=== PATIENT | male | born 1990 | race Caucasian/White ===

== ENCOUNTER 2020-07-30 09:13 | Outpatient (REF) | payer OTHER, SELFPAY | END 2020-07-30 09:14 | disposition home or self-care (01) | LOC: HO.LAB 09:13 | PROVIDERS: Visit Provider Internal Medicine | DX: Z20.828 Contact with and (suspected) exposure to other viral communicable diseases (principal) | CPT/HCPCS: 87635 ==

== ENCOUNTER 2021-12-01 19:08 | Emergency (ER) | payer OTHER, SELFPAY ==
[2021-12-01 19:50] VITALS: BP 125/74; PULSE 74; RESP 18; TEMP 36.9; O2SAT 99; BMI 32.3
--- NOTE | 2021-12-01 20:06 | ED_ITS ---
HPI - Extremity Problem General Chief complaint: Extremity Injury, Upper Stated complaint: thumb lac Time Seen by Provider: 12/01/21 20:06 Source: patient Mode of arrival: ambulatory Limitations: no limitations History of Present Illness HPI Narrative: Patient is a 31 year old male presenting to the emergency department today with a right index finger laceration. 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 Patient denies any other injuries from the incident. Patient denies any loss of consciousness with the incident. Patient denies any dizziness, lightheadedness, abdominal pain, nausea, vomiting, fever, chills, blurry vision, double vision, loss of vision, chest pain, difficulty breathing, shortness of breath, back pain, night sweats, pain with u rination, increased urinary frequency, increased urinary urgency, blood in his urine or stool, syncope or a near syncopal episode, bowel incontinence, bladder incontinence, bowel retention, bladder retention, or any other complaints at this time. Related Data Previous Rx's Medication Instructions Recorded cephalexin 500 mg capsule 1,000 mg PO Q6H 7 Days #56 cap 12/01/21 cephalexin 500 mg tablet 500 mg PO QID 7 Days #28 tab 12/01/21 Allergies Allergy/AdvReac Type Severity Reaction Status Date / Time No Known Allergies Allergy Verified 12/01/21 19:49 Review of Systems Constitutional: Constitutional: Reports no additional constitutional complaints, Denies chills, Denies fever(s) and Denies night sweats Eyes: Eyes: Reports no additional eye complaints, Denies blurry vision, Denies change in vision, Denies diplopia, Denies eye discharge, Denies loss of vision and Denies eye pain ENT: Denies dizziness Cardiovascular: Cardiovascular: Reports no additional cardiovascular complaints, Denies chest pain, Denies lightheadedness, Denies Loss of Conscio usness and Denies dyspnea Respiratory: Respiratory: Reports no additional respiratory complaints and Denies dyspnea Gastrointestinal: Gastrointestinal: Reports no additional gastrointestinal complaints, Denies abdominal pain, Denies melena, Denies hematochezia, Denies change in bowel habits and Denies change in stool character Genitourinary: Genitourinary: Reports no additional male genitourinary complaints, Denies hematuria, Denies oliguria, Denies difficulty urinating, Denies dysuria, Denies urinary frequency, Denies urinary hesitancy, Denies urinary incontinence and Denies urinary urgency Musculoskeletal: Musculoskeletal: Reports no additional musculoskeletal complaints, Denies numbness and Denies tingling Integumentary/Breasts: Comments: laceration to the right index finger Neurologic: Denies dizziness, Denies loss of vision, Denies numbness and Denies tingling Psychiatric: Psychiatric: Reports no additional psychiatric complaints Endocrine: Endocrine: Reports no additional endocrine complaints Hematologic/Lymphatic: Hematologic/Lymphatic: Reports no additional hematologic/lymphatic complaints Allergic/Immunologic: Allergic/Immunologic: Reports no additional allergic/immunologic complaints [facility] Past Medical History Attestation statement: The following information was validated with the patient. Source: old records reviewed Social History Social History Advance Directives: No Advance Directives Information Provided: No Physical Exam Vital Signs: Vital Signs: Last Vital Signs Temp 98.4 F 12/01/21 19:50 Pulse 74 12/01/21 19:50 Resp 18 12/01/21 19:50 BP 125/74 12/01/21 19:50 Pulse Ox 99 12/01/21 19:50 BMI result Body Mass Index 32.3 Const: General: cooperative, no acute distress, alert and awake Nutritional Appearance: well nourished Orientation/consciousness: patient oriented x3 Limitations: no limitations HENMT: Head: Yes normal to inspection and Yes atraumatic Ears: hearing grossly normal bilaterally and external ears normal General nose exam: Normal external nose present, no nasal discharge noted and no epistaxis Face and sinus: Yes normal facial exam, No abrasion and No laceration Mouth: Normal oral and palatal mucosa present, no drooling and no muffled voice Eyes: General: appearance normal, both eyes and all related structures Periorbital: periorbital findings normal Eyelids: Yes eyelids normal Conjunctivae: conjunctivae normal Pupils: Equal, round and reactive pupils present EOM: EOMs intact bilaterally Neck: Neck: Yes normal visual inspection, Yes full ROM and Yes no lymphadenopathy Chest: Chest palpation & inspection: normal inspection of the chest Resp: Effort & Inspection: normal respiratory effort and able to speak in complete sentences Auscultation: clear to auscultation bilaterally Cardio: Rate: regular rate Rhythm: regular rhythm GI: Inspection: Yes normal to inspection Skin: Other: 1cm laceration to the right index finger with no active bleeding Neuro: General: patient oriented x3 and moves all extremities Cranial nerves: Yes Equal, round and reactive pupils present Cognition (Neuro): normal cognition Motor exam (neuro): 5/5 motor strength present throughout Sensory Exam: Normal double simultaneous stimulation for sensation Coordination: [id number] test normal Extrem: General: Yes normal to inspection, Yes full ROM and Yes capillary refill normal Psych: Appearance: grossly normal Mental Status: mental status grossly normal Affect: normal affect Attitude: cooperative Thought process: Normal thought process present Thought content: Normal thought content present Insight: Good insight present (Psych) MDM - Extremity (Nontraumatic) MDM Narrative Medical decision making narrative: Patient is a 31 year old male presenting to the emergency department today with a right index finger laceration. Patient's physical exam showed a 1cm laceration to the right index finger with no active bleeding. Patient's ROM and PMS was intact to the right upper extremity. I explained my physical exam findings to the patient. I answered all questions asked by the patient. Patient's laceration was repaired, without incident, per procedure note. Patient's PMS and ROM was intact to the right upper extremity before and after the suture procedure. I stressed the importance of the patient taking his medication as prescribed. I stressed the importance of the patient following up with his primary care provider. I stressed the importance of the patient returning to the emergency department immediately if his symptoms were to worsen or if he were to develop any dizziness, shortness of breath, difficulty breathing, chest pain, blurry vision, loss of vision, nausea, vomiting, abdominal pain, fever, chills, back pain, or any other complaints. Patient verbalized agreement and understanding with this treatment plan and discharge. Differential Diagnosis Differential diagnosis: Likely cellulitis (laceration) Medical Records Attestation: I reviewed the patient's medical records. Procedures Laceration Laceration 1: Site: other (index finger) Side (If applicable): right Size (cm): 1 Description: linear Depth: simple, single layer Local Anesthetic: lidocaine 2% and with epi Amount of anesthesia used (mL): 3 Pre-repair: irrigated extensively Skin layer closed with: nylon Size (cm): 4-0 Number of sutures: 2 Technique: simple, interrupted Discharge Plan Discharge Clinical Impression: Finger laceration Patient Disposition: Home, Self-Care Instructions: Laceration (DC) Additional Instructions: Have your sutures removed in 10-14 days. Do NOT soak the sutured area. Take your antibiotic as written. Follow up with your primary care provider. Return to the emergency department immediately if your symptoms worsen or if you develop any dizziness, shortness of breath, difficulty breathing, chest pain, blurry vision, loss of vision, nausea, vomiting, abdominal pain, fever, chills, back pain, or any other complaints. Prescriptions: New cephalexin 500 mg capsule 1,000 mg PO Q6H 7 Days Qty: 56 0RF cephalexin 500 mg tablet 500 mg PO QID 7 Days Qty: 28 0RF Stand Alone Forms: Work/School Release Interventions: ED Discharge Assessment Last Done: 12/01/21 20:57 Print Language: Tanzanian
[2021-12-01] MEDS: Lidocaine HCl 2%/Epi 1:100,000 20 ML VIAL INFILTRATI (20:13)
== END 2021-12-01 20:59 | disposition home or self-care (01) ==
PROVIDERS: Emergency Provider Emergency Medicine; PCP Family Medicine
DX: S61.210A Laceration without foreign body of right index finger without damage to nail, initial encounter (principal); W26.0XXA Contact with knife, initial encounter; Y93.G1 Activity, food preparation and clean up; Y92.511 Restaurant or cafe as the place of occurrence of the external cause; Y99.0 Civilian activity done for income or pay
CPT/HCPCS: 12001; 99283; 99284

== ENCOUNTER 2023-02-09 11:27 | Emergency (ER) | payer MEDICAID, SELFPAY ==
--- NOTE | ~2023-02-09 | XR_ITS ---
EXAMINATION: XR CHEST CLINICAL INFORMATION: Chest pain. COMPARISON: None available. TECHNIQUE: Frontal view of the chest was obtained. FINDINGS: No significant abnormality is noted involving the heart, lungs, mediastinum, bony thorax or soft tissues. XR/XR chest 1V IMPRESSION: Unremarkable examination.
--- NOTE | 2023-02-09 11:33 | ECG_ITS ---
Test Reason : cp Blood Pressure : / mmHG Vent. Rate : 073 BPM Atrial Rate : 073 BPM P-R Int : 160 ms QRS Dur : 082 ms QT Int : 360 ms P-R-T Axes : 048 033 019 degrees QTc Int : 396 ms Sinus rhythm with marked sinus arrhythmia Otherwise normal ECG When compared with ECG of 18-JUN-2010 08:16, No significant change was found Referred By: Generic ED Physician Electronically Signed By:ROWENA ALFRED
[2023-02-09 12:10] VITALS: BP 127/79; PULSE 76; RESP 17; TEMP 36.2; O2SAT 100; BMI 32.8
--- NOTE | 2023-02-09 13:18 | ED.GENADULT ---
HPI - General Adult General Chief complaint: General Medical Stated complaint: chest pain Time Seen by Provider: 02/09/23 15:58 Source: patient, RN notes reviewed and old records reviewed Mode of arrival: ambulatory Limitations: no limitations History of Present Illness HPI narrative: 32-year-old male with past medical history significant for anxiety presents for evaluation of chest pain. He reports he woke up with the pain this morning. The pain is dull, left sided and radiates through to his back. The pain is constant but waxing and waning in intensity. Currently his pain is a 3/10. He reports a history of chest pain with his anxiety, but this felt different. He presents to the ER because his pain worsened while he was at work and he became lightheaded Denies any personal or family history of CAD Related Data Previous Rx's Medication Instructions Recorded cephalexin 500 mg capsule 1,000 mg PO Q6H 7 days #56 caps 12/01/21 cephalexin 500 mg tablet 500 mg PO QID 7 days #28 tabs 12/01/21 hydroxyzine pamoate 25 mg capsule 25 mg PO TID PRN anxiety #20 caps 02/09/23 Allergies Allergy/AdvReac Type Severity Reaction Status Date / Time No Known Allergies Allergy Verified 12/01/21 19:49 Review of Systems Constitutional: Constitutional: Reports as per HPI, Denies chills, Denies fatigue, Denies fever(s) and Denies headache(s) ENT: Denies headache(s) Cardiovascular: Cardiovascular: Reports chest pain, Reports chest pain at rest, Denies syncope, Denies palpitations and Denies dyspnea on exertion Respiratory: Respiratory: Denies cough and Denies dyspnea on exertion Gastrointestinal: Gastrointestinal: Denies abdominal pain, Denies constipation and Denies vomiting Genitourinary: Genitourinary: Denies difficulty urinating and Denies dysuria Musculoskeletal: Musculoskeletal: Reports back pain and Reports tingling Neurologic: Denies syncope, Denies headache(s), Denies focal weakness and Reports tingling Endocrine: Endocrine: Denies fatigue and Denies palpitations Physical Exam ED Vital Signs: Vital Signs - 24 hr 02/09/23 12:10 Temperature 97.2 F Pulse Rate 76 Respiratory Rate 17 Blood Pressure 127/79 Pulse Oximetry 100 Oxygen Delivery Method Room Air BMI result Body Mass Index 32.8 Const General: healthy appearing, comfortable, no acute distress, alert and awake Nutritional Appearance: well nourished Orientation/consciousness: patient oriented x3 HENMT Head: Yes normocephalic and Yes atraumatic Throat: Yes posterior oropharynx normal Eyes Eyelids: Yes eyelids normal Conjunctivae: conjunctivae normal Sclerae: sclerae normal Corneas: corneas normal Pupils: Equal, round and reactive pupils present EOM: EOMs intact bilaterally Neck Neck: Yes full ROM Chest Other: Minimally tender to palpation the left chest wall without crepitus Resp Effort & Inspection: normal respiratory effort, able to speak in complete sentences, no audible wheezes and not labored Auscultation: clear to auscultation bilaterally Cardio Rate: regular rate Rhythm: regular rhythm GI Inspection: No distended Palpation (GI): Soft to palpation, not firm, nontender, no guarding and not rigid Auscultation: normoactive bowel sounds Skin General skin exam: no rashes or lesions noted and elasticity normal Neuro General: patient oriented x3 Cranial nerves: Yes Equal, round and reactive pupils present and Yes Bilaterally intact EOM present Cognition (Neuro): normal cognition Extrem Other: Moving all extremities well without any obvious deformities Course Course Course Narrative: This is an RME: Additional HPI, ROS, PE not included below will be deferred to primary provider. 32 year old male presents w/ CP, & SOB. Sub sternal non radiating, worse w/ movement at times stabbing other times pressure PE benign Plan- labs, imaging, ekg Medical Decision Making Medical Decision Making [facility] Narrative: 32 year old male with no risk factors for ACS presents for evaluation of Chest pain. His heart score is 1. He is PERC negative. Vitals are stable. EKG is sinus rhythm without ischemic changes. Chest x-ray is clear. His pain is most likely related to anxiety. All results were discussed with him and he requested something for anxiety I can take at home. We will prescribe PRN hydroxyzine Differential Diagnosis Chest pain, ACS, chest wall pain, anxiety, PE Lab Data [facility] Lab Attestation statement: I reviewed the patient's lab results. 02/09/23 13:33 02/09/23 13:33 Labs: Lab Results 02/09/23 02/09/23 02/09/23 Range/Units 13:33 13:33 13:33 WBC 8.7 (4.8-10.8) X10*3/uL RBC 5.88 H (4.60-5.80) X10*6/uL Hgb 15.5 (14.0-18.0) g/dl Hct 46.8 (42.0-52.0) % MCV 79.6 L (80.0-98.0) fL MCH 26.4 L (27.0-33.0) pg MCHC 33.1 (31.0-36.0) g/dl RDW 13.8 (11.0-16.0) % Plt Count 208 (160-400) X10*3/uL MPV 9.5 (9.4-12.4) fL Immature Gran % (Auto) 0.2 (0.0-0.4) % Neut % (Auto) 68.6 (45-73) % Lymph % (Auto) 22.4 (20-40) % Wilkinson % (Auto) 7.5 (2-11) % Eos % (Auto) 0.8 (0-4) % Baso % (Auto) 0.5 (0-2) % Lymph # (Auto) 2.0 (1.2-4.9) X10*3/uL Wilkinson # (Auto) 0.7 (0.1-1.2) X10*3/uL Eos # (Auto) 0.1 (0.0-0.4) X10*3/uL Baso # (Auto) 0.0 (0.0-0.2) X10*3/uL Abs Immat Gran (auto) 0.02 (0.00-0.03) X10*3/uL Absolute Neuts (auto) 6.0 (2.0-8.3) x10*3/uL Absolute Nucleated RBC 0.000 (0.0-0.012) X10*3/uL Nucleated RBC % (auto) 0.0 (0.0-0.2) /100WBC Sodium 141 (135-145) mmol/L Potassium 4.6 (3.3-5.1) mmol/L Chloride 106 (96-108) mmol/L Carbon Dioxide 27 (22-29) mmol/L Anion Gap 13 (12-20) BUN 11 (9-16) mg/dL Creatinine 1.14 (0.5-1.4) mg/dL Estim Creat Clear Calc 111.1 Estimated GFR > 60 Random Glucose 88 (60-115) mg/dL Calcium 9.9 (8.4-10.2) mg/dL Magnesium 1.8 (1.6-2.6) mg/dL Total Bilirubin 1.1 H (0.0-1.0) mg/dL AST 18 (5-37) U/L ALT 20 (0-40) U/L Alkaline Phosphatase 72 (39-117) U/L Troponin I High Sens < 2.7 (<3.5-35.0) ng/L Total Protein 7.6 (6.5-8.0) g/dL Albumin 4.7 (3.5-5.0) g/dL COVID-19 (FIFI) (Negative) COVID-19 Clin Com 02/09/23 Range/Units 13:33 WBC (4.8-10.8) X10*3/uL RBC (4.60-5.80) X10*6/uL Hgb (14.0-18.0) g/dl Hct (42.0-52.0) % MCV (80.0-98.0) fL MCH (27.0-33.0) pg MCHC (31.0-36.0) g/dl RDW (11.0-16.0) % Plt Count (160-400) X10*3/uL MPV (9.4-12.4) fL Immature Gran % (Auto) (0.0-0.4) % Neut % (Auto) (45-73) % Lymph % (Auto) (20-40) % Wilkinson % (Auto) (2-11) % Eos % (Auto) (0-4) % Baso % (Auto) (0-2) % Lymph # (Auto) (1.2-4.9) X10*3/uL Wilkinson # (Auto) (0.1-1.2) X10*3/uL Eos # (Auto) (0.0-0.4) X10*3/uL Baso # (Auto) (0.0-0.2) X10*3/uL Abs Immat Gran (auto) (0.00-0.03) X10*3/uL Absolute Neuts (auto) (2.0-8.3) x10*3/uL Absolute Nucleated RBC (0.0-0.012) X10*3/uL Nucleated RBC % (auto) (0.0-0.2) /100WBC Sodium (135-145) mmol/L Potassium (3.3-5.1) mmol/L Chloride (96-108) mmol/L Carbon Dioxide (22-29) mmol/L Anion Gap (12-20) BUN (9-16) mg/dL Creatinine (0.5-1.4) mg/dL Estim Creat Clear Calc Estimated GFR Random Glucose (60-115) mg/dL Calcium (8.4-10.2) mg/dL Magnesium (1.6-2.6) mg/dL Total Bilirubin (0.0-1.0) mg/dL AST (5-37) U/L ALT (0-40) U/L Alkaline Phosphatase (39-117) U/L Troponin I High Sens (<3.5-35.0) ng/L Total Protein (6.5-8.0) g/dL Albumin (3.5-5.0) g/dL COVID-19 (FIFI) Negative (Negative) COVID-19 Clin Com See Note Independent Interpretation I performed an independent interpretation of an: EKG and Plain X-Ray Discharge Plan Discharge Clinical Impression: Chest pain Patient Disposition: Home, Self-Care Instructions: Chest Pain (ED) Additional Instructions: All of your test in the ER were reassuring. This includes your EKG, labs, and chest x-ray. Follow up with your primary doctor. Your pain is likely related to anxiety. You may take hydroxyzine as needed for anxiety. Prescriptions: New hydroxyzine pamoate 25 mg capsule 25 mg PO TID PRN (Reason: anxiety) Qty: 20 0RF No Action cephalexin 500 mg capsule 1,000 mg PO Q6H 7 Days Qty: 56 0RF cephalexin 500 mg tablet 500 mg PO QID 7 Days Qty: 28 0RF Stand Alone Forms: Work/School Release
[2023-02-09 13:39] LABS: MANUAL DIFF FLAG NO
[2023-02-09 13:41] LABS: Basophils Percent Auto 0.5 % (0-2); Eosinophils Absolute Auto 0.1 X10*3/uL (0.0-0.4); Eosinophils Percent Auto 0.8 % (0-4); Hematocrit 46.8 % (42.0-52.0); Hemoglobin 15.5 g/dl (14.0-18.0); Imm Gran Abs Auto 0.02 X10*3/uL (0.00-0.03); Imm Gran Pct Auto 0.2 % (0.0-0.4); Lymphocytes Percent Auto 22.4 % (20-40); Mean Corpuscular HGB Conc 33.1 g/dl (31.0-36.0); Mean Corpuscular Hemoglobin 26.4 pg (27.0-33.0); Mean Corpuscular Volume 79.6 fL (80.0-98.0); Mean Platelet Volume 9.5 fL (9.4-12.4); Monocytes Absolute Auto 0.7 X10*3/uL (0.1-1.2); Monocytes Percent Auto 7.5 % (2-11); Neutrophils Percent Auto 68.6 % (45-73); Platelet Count 208 X10*3/uL (160-400); Red Blood Count 5.88 X10*6/uL (4.60-5.80); Red Cell Distribution Width 13.8 % (11.0-16.0); White Blood Count 8.7 X10*3/uL (4.8-10.8)
[2023-02-09 13:55] LABS: Alanine Aminotransferase 20 U/L (0-40); Albumin Level 4.7 g/dL (3.5-5.0); Alkaline Phosphatase 72 U/L (39-117); Anion Gap 13 (12-20); Aspartate Amino Transferase 18 U/L (5-37); Bilirubin Total 1.1 mg/dL (0.0-1.0); Blood Urea Nitrogen 11 mg/dL (9-16); Calcium 9.9 mg/dL (8.4-10.2); Carbon Dioxide 27 mmol/L (22-29); Chloride 106 mmol/L (96-108); Creatinine Clr Calc Pharmacy 111.1; Estimated Glomerular Filt Rate > 60; Glucose Random 88 mg/dL (60-115); Magnesium 1.8 mg/dL (1.6-2.6); Potassium 4.6 mmol/L (3.3-5.1); Sodium 141 mmol/L (135-145); Total Protein 7.6 g/dL (6.5-8.0)
[2023-02-09 13:59] LABS: COVID-19 Test Negative (Negative); IDNOW Serial# BCCEAD1C
[2023-02-09 14:13] LABS: Troponin-I High Sensitivity < 2.7 ng/L (<3.5-35.0)
[2023-02-09 16:38] VITALS: BP 121/72; PULSE 66; RESP 16; TEMP 36.7; O2SAT 97
== END 2023-02-09 16:43 | disposition home or self-care (01) ==
PROVIDERS: Physician Assistant; Emergency Provider Emergency Medicine Emergency Medical Services
DX: R07.89 Other chest pain (principal); Z20.822 Contact with and (suspected) exposure to COVID-19; Z20.828 Contact with and (suspected) exposure to other viral communicable diseases; Z79.899 Other long term (current) drug therapy
CPT/HCPCS: 71045; 80053; 83735; 84484; 85025; 87635; 93005; 99283

== ENCOUNTER 2023-03-27 15:51 | Emergency (ER) | payer MEDICAID, SELFPAY ==
--- NOTE | ~2023-03-27 | XR_ITS ---
EXAMINATION: XR HAND, LEFT CLINICAL INFORMATION: Injury. Pain. COMPARISON: None available. TECHNIQUE: 3 views of the hand. Oblique cone-down views of the left fifth digit. FINDINGS: Comminuted intra-articular fracture of the distal fifth metacarpal. Fracture extends from the neck to the articular surface of bone. Slight volar angulation of the distal fracture fragment. There is no dislocation. XR/XR hand LT min 3V IMPRESSION: Comminuted intra-articular fracture of the distal fifth metacarpal.
[2023-03-27 16:12] VITALS: BP 149/62; PULSE 78; RESP 20; TEMP 35.8; O2SAT 96; BMI 30.1
--- NOTE | 2023-03-27 16:13 | ED_ITS ---
HPI - Extremity Injury (Upper) General Chief Complaint: Extremity Problem Stated Complaint: injury left hand Time Seen by Provider: 03/27/23 17:03 Source: patient Mode of arrival: ambulatory Limitations: no limitations History of Present Illness HPI narrative: Patient is a 32 year old assigned male at with no reported medical history presenting to the emergency department today with left hand pain. Patient states that he fell forward trying to stop his son from running down the stairs when his left hand slammed into the wall. Patient denies any dizziness, lightheadedness, abdominal pain, nausea, vomiting, fever, chills, blurry vision, double vision, loss of vision, chest pain, difficulty breathing, shortness of breath, back pain, night sweats, pain with urination, increased urinary frequency, increased urinary urgency, blood in his urine or stool, syncope or a near syncopal episode, bowel incontinence, bladder incontinence, bowel retention, bladder retention, or any other complaints at this time. MD complaint: injury to: left and hand Other injuries: none Place: home Severity: mild Severity scale (1-10): 4 Relieving factors: immobilization Exacerbating factors: movement of extremity Context: direct blow Associated symptoms: denies other symptoms Related Data Previous Rx's Medication Instructions Recorded cephalexin 500 mg capsule 1,000 mg PO Q6H 7 days #56 caps 12/01/21 cephalexin 500 mg tablet 500 mg PO QID 7 days #28 tabs 12/01/21 hydroxyzine pamoate 25 mg capsule 25 mg PO TID PRN anxiety #20 caps 02/09/23 Allergies Allergy/AdvReac Type Severity Reaction Status Date / Time No Known Allergies Allergy Verified 03/27/23 16:19 Review of Systems Constitutional: Constitutional: Reports no additional constitutional complaints, Denies chills, Denies fever(s) and Denies night sweats Eyes: Eyes: Reports no additional eye complaints, Denies blurry vision, Denies change in vision, Denies diplopia, Denies eye discharge, Denies loss of vision and Denies eye pain ENT: Denies dizziness Cardiovascular: Cardiovascular: Reports no additional cardiovascular complaints, Denies chest pain, Denies lightheadedness, Denies Loss of Consciousness and Denies dyspnea Respiratory: Respiratory: Reports no additional respiratory complaints and Denies dyspnea Gastrointestinal: Gastrointestinal: Reports no additional gastrointestinal complaints, Denies abdominal pain, Denies melena, Denies hematochezia, Denies change in bowel habits and Denies change in stool character Genitourinary: Genitourinary: Reports no additional male genitourinary complaints, Denies hematuria, Denies oliguria, Denies difficulty urinating, Denies dysuria, Denies urinary frequency, Denies urinary hesitancy, Denies urinary incontinence and Denies urinary urgency Musculoskeletal: Musculoskeletal: Reports no additional musculoskeletal complaints, Denies numbness and Denies tingling Comments: left hand pain Neurologic: Denies dizziness, Denies loss of vision, Denies numbness and Denies tingling Psychiatric: Psychiatric: Reports no additional psychiatric complaints Endocrine: Endocrine: Reports no additional endocrine complaints Hematologic/Lymphatic: Hematologic/Lymphatic: Reports no additional he matologic/lymphatic complaints Allergic/Immunologic: Allergic/Immunologic: Reports no additional allergic/immunologic complaints PMFSH Past Medical History Attestation statement: The following information was validated with the patient. Source: old records reviewed and nursing notes reviewed Social History Social History Advance Directives: No Advance Directives Information Provided: No Physical Exam Vital Signs: Vital Signs: Last Vital Signs Temp 96.5 F L 03/27/23 16:12 Pulse 78 03/27/23 16:12 Resp 20 03/27/23 16:12 BP 149/62 H 03/27/23 16:12 Pulse Ox 96 03/27/23 16:12 O2 Del Method Room Air 03/27/23 16:12 BMI result Body Mass Index 30.1 Const: General: cooperative, no acute distress, alert and awake Nutritional Appearance: well nourished Orientation/consciousness: patient oriented x3 Limitations: no limitations HEENT: Head: Yes normal to inspection and Yes atraumatic Ears: hearing grossly normal bilaterally and external ears normal General nose exam: Normal external nose present, no nasal discharge noted and no epistaxis Face and sinus: Yes normal facial exam, No abrasion and No laceration Mouth: Normal oral and palatal mucosa present, no drooling and no muffled voice Eyes: General: appearance normal, both eyes and all related structures Periorbital: periorbital findings normal Eyelids: Yes eyelids normal Conjunctivae: conjunctivae normal Pupils: Equal, round and reactive pupils present EOM: EOMs intact bilaterally Neck: Neck: Yes normal visual inspection, Yes full ROM and Yes no lymphadenopathy Chest: Chest palpation & inspection: normal inspection of the chest Resp: Effort & Inspection: normal respiratory effort and able to speak in complete sentences GI: Inspection: Yes normal to inspection Neuro: General: patient oriented x3 and moves all extremities Cranial nerves: Yes Equal, round and reactive pupils present Cognition (Neuro): normal cognition Motor exam (neuro): 5/5 motor strength present throughout Sensory Exam: Normal double simultaneous stimulation for sensation Coordination: [id number] test normal Extrem: Other: dorsal left hand swelling General: Yes full ROM and Yes capillary refill normal Psych: Appearance: grossly normal Mental Status: mental status grossly normal Affect: normal affect Attitude: cooperative Thought process: Normal thought process present Thought content: Normal thought content present Insight: Good insight present (Psych) Course Course Course Narrative: RME - 32 yo left hand dominant male presents to the ER for evaluation of a left hand injury that occurred last night. He fell down a set of stairs and got his left hand caught on the metal piece suspending the handrail. Today significant pain, swelling and bruising to the left hand over the 4th and 5th metacarpals. Plan: hand x-ray Medical Decision Making Medical Decision Making [facility] Narrative: Patient is a 32 year old assigned male at with no reported medical history presenting to the emergency department today with left hand pain. Patient's physical exam showed dorsal swelling of the left hand but was otherwise unremarkable. Patient's left hand x-ray showed comminuted intra-articular fracture of the distal fifth metacarpal. I explained my physical exam findings as well as all test results to the patient. I answered all questions asked by the patient. Patient's left hand was placed in an ulnar gutter splint without incident. Patient's left upper extremity was also placed in a sling given the weight of the splint. Patient's PMS was intact prior to and after splint and sling placement. I stressed the importance of the patient taking his medication as prescribed. I stressed the importance of the patient following up with his primary care provider and an orthopedic provider. I stressed the importance of the patient returning to the emergency department immediately if his symptoms were to worsen or if he were to develop any dizziness, shortness of breath, difficulty breathing, chest pain, blurry vision, loss of vision, nausea, vomiting, abdominal pain, fever, chills, back pain, or any other complaints. Patient verbalized agreement and understanding with this treatment plan and discharge. Differential Diagnosis Differential Diagnoses: The differential diagnosis associated with the presentation includes Hand fracture 5th metacarpal fracture Hand sprain Hand strain Hand pain Independent Interpretation I performed an independent interpretation of an: Plain X-Ray Interpretation: My interpretation is in agreement with the radiologist's impression of this imaging study. EXAMINATION: XR HAND, LEFT CLINICAL INFORMATION: Injury. Pain.? COMPARISON: None available.? TECHNIQUE: 3 views of the hand. Oblique cone-down views of the left fifth digit. FINDINGS: Comminuted intra-articular fracture of the distal fifth metacarpal. Fracture extends from the neck to the articular surface of bone. Slight volar angulation of the distal fracture fragment. There is no dislocation.? XR/XR hand LT min 3V IMPRESSION: Comminuted intra-articular fracture of the distal fifth metacarpal. Dictated By: Deepak Smalls MD Signed By: Electronically signed by Deepak Smalls MD 03/27/23 1647 Procedures Orthopedic Splinting/Casting Injury #1: Side: left Upper Extremity Injury Location: hand Upper Extremity Immobilizer: sling/shoulder immobilizer and ulnar gutter Discharge Plan Discharge Clinical Impression: Closed fracture of 5th metacarpal Patient Disposition: Home, Self-Care Instructions: Hand Fracture (ED) Additional Instructions: Keep your splint dry. If your fingers begin to have any numbness or tingling, please loosen the solis wraps on the splint. If they continue to be numb or tingle, please proceed to your nearest emergency department. Please elevate the extremity. Follow up with your primary care provider and an orthopedic provider. Return to the emergency department immediately if your symptoms worsen or if you develop any dizziness, shortness of breath, difficulty breathing, chest pain, blurry vision, loss of vision, nausea, vomiting, abdominal pain, fever, chills, back pain, or any other complaints. Prescriptions: No Action cephalexin 500 mg capsule 1,000 mg PO Q6H 7 Days Qty: 56 0RF cephalexin 500 mg tablet 500 mg PO QID 7 Days Qty: 28 0RF hydroxyzine pamoate 25 mg capsule 25 mg PO TID PRN (Reason: anxiety) Qty: 20 0RF Referrals: [facility] [place] [facility] [Provider Group] (Call to establish and follow up with a primary care provider. If you already have a primary care provider, please follow up with them.) [facility] [place] [facility], [facility] [Provider Group] (Call to establish and follow up with a primary care provider. If you already have a primary care provider, please follow up with them.) [facility] [place] [facility],Candi [Provider Group] (Call to establish and follow up with a primary care provider. If you already have a primary care provider, please follow up with them.) [facility] [place] [facility] [Provider Group] (Call to establish and follow up with an orthopedic provider.) Print Language: Faroese
== END 2023-03-27 17:57 | disposition home or self-care (01) ==
PROVIDERS: Emergency Provider Emergency Medicine
DX: S62.397A Other fracture of fifth metacarpal bone, left hand, initial encounter for closed fracture (principal); W10.8XXA Fall (on) (from) other stairs and steps, initial encounter; Y93.89 Activity, other specified; Y92.038 Other place in apartment as the place of occurrence of the external cause; Y99.9 Unspecified external cause status
CPT/HCPCS: 29125; 73130; 99282; 99283

== ENCOUNTER 2023-04-13 13:08 | Outpatient (REF) | payer MEDICAID, SELFPAY ==
--- NOTE | ~2023-04-13 | XR_ITS ---
EXAMINATION: XR HAND, LEFT CLINICAL INFORMATION: Pain in hand status post removal of splint. COMPARISON: 03/27/2023 TECHNIQUE: PA, lateral, and oblique views of the left hand. FINDINGS: Again seen is the comminuted fracture involving the head of the distal 5th metacarpal. Since the prior study, there has been some interval healing with bone resorption and decreased darkness of fracture fragment lines and some mild periosteal reaction with perifracture calcification. No additional fractures are seen. XR/XR hand LT min 3V IMPRESSION: Some interval healing of the distal 5th metacarpal fracture.
== END 2023-04-13 13:09 | disposition home or self-care (01) ==
LOC: HO.HOSX 13:08
PROVIDERS: Visit Provider Physician Assistant
DX: S62.307A Unspecified fracture of fifth metacarpal bone, left hand, initial encounter for closed fracture (principal); W19.XXXA Unspecified fall, initial encounter; Y93.9 Activity, unspecified; Y92.9 Unspecified place or not applicable; Y99.9 Unspecified external cause status
CPT/HCPCS: 26600; 73130; 99204

== ENCOUNTER 2023-04-13 14:21 | Outpatient (AMB) | payer MEDICAID, SELFPAY ==
[2023-04-13 14:35] VITALS: BMI 30.1
--- NOTE | 2023-04-13 14:35 | MHC.OFFVIS ---
Intake Vital Signs 04/13/23 14:35 Height 5 ft 10 in Weight 210 lb BMI 30.1 Intake Visit Reasons: Fc-5th metacarpal fx Intake Note: Charlie is a 33 year old left hand dominant male who presents today for a fracture care appointment for his left 5th metacarpal fx, 03/27/23. 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 He states that his pain is a 2 or 3/10 on a pain scale. Denies numbness and tingling. Allergies No Known Allergies Allergy (Verified 04/13/23 14:41) HPI Fc-5th metacarpal fx HPI Details 33-year-old left hand dominant male who presents in the office today, as a new patient, for an evaluation of left hand pain. The patient presented to the ED on 03/27/2023 status post falling forward to stop his son from falling down the stairs causing his left hand to slam into the railing that holds on the wall. X-rays of the left hand were obtained. The patient was placed in a shoulder sling and ulnar gutter splint. He reports his pain is a 2-3/10 while in the office today. He denies numbness or tingling. 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 Review of Systems Const All systems reviewed & are unremarkable except as noted in HPI and below Physical Exam Vital Signs: BMI result Body Mass Index 30.1 Const General: cooperative, healthy appearing, comfortable, no acute distress, well developed and alert Orientation/consciousness: patient oriented x3 HEENT Head: Yes normal to inspection, Yes normocephalic and Yes atraumatic Eyes General: appearance normal, both eyes and all related structures Resp Effort & Inspection: normal respiratory effort and able to speak in complete sentences Cardio Rate: regular rate Peripheral pulses: Peripheral pulses 2+ throughout GI Palpation (GI): Soft to palpation Skin Lesions: no lesions Rashes: no rashes Neuro General: patient oriented x3 Extrem Other: Left hand: Normal to inspection. No ecchymosis, erythema, or edema. Able to perform full finger flexion, extension, abduction, adduction, finger cross, okay sign, and thumbs up without deficit. Able to make a closed fist with no scissoring. No tenderness to palpation at the 5th metacarpal at the fracture site. Sensation intact. Capillary refill is brisk. Radial pulse intact. Office Procedures Casting/Splints 01489-Naux/Wrist Cast Application Procedure code (CPT) selection complete Fracture Care Fracture Billing Code: Fracture Billing Code Assessment & Plan Assessment & Plan (1) Fracture of fifth metacarpal bone of left hand: Code(s): S62.307A - Unspecified fracture of fifth metacarpal bone, left hand, initial encounter for closed fracture Plan Mr. Simpson is a 33-year-old left hand dominant male who presents in the office today, as a new patient, for an evaluation of left hand pain. The patient presented to the ED on 03/27/2023 status post falling forward to stop his son from falling down the stairs causing his left hand to slam into the railing that holds on the wall. X-rays of the left hand were obtained. The patient was placed in a shoulder sling and ulnar gutter splint. He reports his pain is a 2-3/10 while in the office today. He denies numbness or tingling. 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 The patient will be placed in a ulnar gutter cast with the 4th and 5th digits also in the cast. He will need to work on finger ROM for the three open fingers. Follow up will be in 2 weeks, or sooner if needed. X-rays of the left hand which were obtained while in the office today and were reviewed by me, Debbie Peterson PA-C, redemonstrated a base of the 5th metacarpal fracture. X-rays of the left hand, obtained on 03/27/2023, revealed: Comminuted intra-articular fracture of the distal fifth metacarpal. Orders: Orders XR hand LT min 3V 04/13/23 M79.643 - Pain in unspecified hand Patient Instructions: Scribed for Debbie Peterson PA-C by Hien Jauqez medical territory manager, on 04/13/2023 at 2:27 pm, EST. Your attestation Coding Level of Care Code New Pt Level 4 (15984) Diagnoses Fracture of fifth metacarpal bone of left hand S62.307A CPT Codes Casting - CPT: 35987-Uynd/Wrist Cast Application ([id number]) Fracture Care - Fracture Billing Code: Fracture Billing Code ([id number])
== END 2023-04-13 15:47 | disposition home or self-care (01) ==
PROVIDERS: Visit Provider Physician Assistant
DX: S62.307A Unspecified fracture of fifth metacarpal bone, left hand, initial encounter for closed fracture (principal)
CPT/HCPCS: 26600; 99204

== ENCOUNTER 2023-04-28 06:07 | Outpatient (REF) | payer MEDICAID, SELFPAY ==
--- NOTE | ~2023-04-28 | XR_ITS ---
EXAMINATION: XR HAND, LEFT CLINICAL INFORMATION: Pain. COMPARISON: Radiographs dated 04/13/2023 and 03/27/2023. TECHNIQUE: PA, lateral, and oblique views of the left hand. FINDINGS: There is a healing of boxer's fracture noted of the distal left fifth distal metacarpal bone. There is in stable alignment and shows good callus formation. No dislocation is seen. The proximal and distal carpal rows are intact. There is a neutral ulnar variance. No focal soft tissue swelling, gas or foreign body is seen. XR/XR hand LT min 3V IMPRESSION: There is stable alignment of a fracture of the left fifth distal metacarpal bone. This shows persistent fracture lines and good callus formation.
== END 2023-04-28 06:08 | disposition home or self-care (01) ==
LOC: HO.HOSX 06:07
PROVIDERS: Visit Provider Physician Assistant
DX: S62.307D Unspecified fracture of fifth metacarpal bone, left hand, subsequent encounter for fracture with routine healing (principal)
CPT/HCPCS: 73130

== ENCOUNTER 2023-04-28 12:24 | Outpatient (AMB) | payer MEDICAID, SELFPAY ==
[2023-04-28 12:47] VITALS: BMI 30.1
--- NOTE | 2023-04-28 12:47 | A.OFFVIS_ITS ---
Intake Vital Signs 04/28/23 12:47 Height 5 ft 10 in Weight 210 lb BMI 30.1 Intake Visit Reasons: OV- 5th metacarpal fx Intake Note: Charlie is a 33 year old left hand dominant male who presents today for his follow up visit for his left 5th metacarpal fx. Cats removed and xrays updated in office. States he feels soreness. Allergies No Known Allergies Allergy (Verified 04/28/23 12:48) HPI OV- 5th metacarpal fx HPI Details 33-year-old left hand dominant male who presents in the office today for a follow up of left 5th metacarpal fracture, which occurred on 03/27/2023 status post falling forward to stop his son from falling down the stairs causing his left hand to slam into the railing that holds on the wall. The cast was removed in the office today for x-rays. He claims to have soreness in the left hand. 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 No ecchymosis, erythema, or edema. No tenderness to palpation over the 5th metacarpal head at the fracture site Able to perform full finger flexion, extension, abduction, adduction, finger cross, okay sign, and thumbs up without deficit. Able to make a closed fist. Sensation intact. Capillary refill is brisk. Radial pulse intact. Assessment & Plan Assessment & Plan (1) Fracture of fifth metacarpal bone of left hand: Code(s): S62.307A - Unspecified fracture of fifth metacarpal bone, left hand, initial encounter for closed fracture Plan Mr. Simpson is a 33-year-old left hand dominant male who presents in the office today for a follow up of left 5th metacarpal fracture, which occurred on 03/27/2023 status post falling forward to stop his son from falling down the stairs causing his left hand to slam into the railing that holds on the wall. The cast was removed in the office today for x-rays. He claims to have soreness in the left hand. The patient will transition to a velcro wrist splint. He reports he has one that he purchased OTC at home that he would like to use instead of one from the office. He was instructed he should wear this until his follow up. Follow up will be in 2-3 weeks with x-rays, or sooner if needed. X-rays of the left hand which were obtained while in the office today and were reviewed by me, Debbie Peterson PA-C, revealed a left hand boxer?s fracture with routine healing. Orders: Orders XR hand LT min 3V Today M79.643 - Pain in unspecified hand Patient Instructions: Scribed for Debbie Peterson PA-C by Hien Jaquez, medical staff assistant, on 04/28/2023 at 12:28 pm, EST. Your attestation Coding Level of Care Code Global (28467) Diagnoses Fracture of fifth metacarpal bone of left hand S62.307A
== END 2023-04-28 13:04 | disposition home or self-care (01) ==
PROVIDERS: Visit Provider Physician Assistant
DX: S62.307A Unspecified fracture of fifth metacarpal bone, left hand, initial encounter for closed fracture (principal)
CPT/HCPCS: 99024

== ENCOUNTER 2023-05-25 05:14 | Outpatient (REF) | payer MEDICAID, SELFPAY | END 2023-05-25 05:15 | disposition home or self-care (01) | LOC: HO.HOSX 05:14 | PROVIDERS: Visit Provider Physician Assistant | DX: Z13.89 Encounter for screening for other disorder (principal) ==